=== PATIENT | male | born 1995 | race Caucasian/White ===

== ENCOUNTER 2016-12-22 05:35 | Emergency (ER) | payer SELFPAY ==
[~2016-12-22 05:35] MED LIST: MOTRIN400 MG
== END 2016-12-22 06:33 | disposition home or self-care (01) ==
LOC: CED 05:35
DX: S01.411A Laceration without foreign body of right cheek and temporomandibular area, initial encounter (principal); F31.9 Bipolar disorder, unspecified; F17.210 Nicotine dependence, cigarettes, uncomplicated; W22.8XXA Striking against or struck by other objects, initial encounter; Y92.410 Unspecified street and highway as the place of occurrence of the external cause
CPT/HCPCS: 12011; 90471; 90715; 99283